=== PATIENT | male | born 1980 | race Caucasian/White ===

== ENCOUNTER → 2016-08-14 | Outpatient (CLI) | payer OTHER ==
[~2016-08-14] MED LIST: AMIT50TA3 PO; NXM/40 PO; OMEP40CA41 PO; OXYC1TAB3 PO; PENI-82 PO; RANI300T2 PO
== END | disposition home or self-care (01) ==
LOC: C.LAB 13:03
DX: R53.83 Other fatigue (principal)

== ENCOUNTER 2017-02-02 00:44 | Emergency (ER) | payer OTHER ==
[~2017-02-02] VITALS: Ht 180.3 cm; Wt 96.1 kg
[~2017-02-02 00:44] MED LIST changes: -OMEP40CA41 PO; -PENI-82 PO
[2017-02-02 00:49] VITALS: TEMP 36.3; Ht 180.3 cm; Wt 96.1 kg
[2017-02-02] MEDS ORDERED: OMEP40CA41 PO (01:10)
[2017-02-02 01:14] VITALS: BP 122/77; PULSE 74; O2SAT 96
[2017-02-02] MEDS ORDERED: PENI-82 PO (01:14)
[2017-02-02] MEDS ORDERED: OXYCODONE IR HOME PACK PO ONE (01:15)
[2017-02-02] MEDS ORDERED: PENICILLIN HOME PACK 500MG (4 DOSES)BTL PO ONE (01:15)
--- NOTE | 2017-02-02 04:00 | EMERGENCY ROOM VISIT NOTE ---
ED Visit Note First contact with patient: 00:51 CHIEF COMPLAINT: Toothache HISTORY OF PRESENT ILLNESS: This 36-year-old male patient presented to the emergency department with a progressive toothache for past several hours. The patient states that he has been having difficulty with right upper molar for the past few months. He had an episode today of worsening pain, and then noticed a piece of the tooth had broken off into his mouth. He does not have trauma to the area, but his pain is now rated a 10/10. He has been using Orajel without relief of symptoms. This just occurred today, and he has not had a chance to contact a dentist. He has not had fever or chills. No facial swelling REVIEW OF SYSTEMS: A 6 system review of systems was completed with positives and pertinent negatives listed in the HPI. ALLERGIES: Tylenol, NSAIDs MEDICATIONS: See EMR PMH: Chronic back pain SOCIAL HISTORY: Lives locally PHYSICAL EXAM: Vitals are noted on the nurse's note and reviewed by myself. Vital signs stable. GENERAL: White male, in no acute distress, nondiaphoretic, well-developed well- nourished. Mouth: The right upper first molar #1 tooth is fractured along the posterior lateral quarter. The gumline is without erythema or edema. No discharge or signs of an abscess. The remainder of the pharynx and tonsils are without erythema, edema, or exudate. The airway is patent. There is no facial swelling , cervical or submandibular lymphadenopathy. The patient appears uncomfortable and in pain. The patient has overall good dental hygiene. EARS: External auditory canals clear, tympanic membranes pearly kumar without erythema or effusion bilaterally. HEART: Regular rate and rhythm without murmur gallop or rub LUNG: Clear to auscultation bilateral ED COURSE: Physical exam and history were performed. Nursing notes and EMR were reviewed. The patient appears to broken a tooth spontaneously today. It is a Friday night and he is not able to contact a dentist because of the weekend. The patient has not regularly been seen here for dental pain. He will be given a course of Pen-Vee K at home pack of OxyIR. The patient is to contact a dentist as soon as possible for definitive care. He was otherwise invited back to the ER with any new, worsening, or concerning symptoms. 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 Current/Historical Medications Scheduled Omeprazole (Prilosec), 40 MG PO DAILY Penicillin V Potassium (Veetids), 500 MG PO QID Allergies Coded Allergies: Acetaminophen (Verified Adverse Reaction, Mild, upset stomach, 10/20/15) NSAIDs (Verified Adverse Reaction, Mild, upset stomach, 10/20/15) Vital Signs Date Time Temp Pulse Resp B/P (MAP) Pulse Ox O2 Delivery O2 Flow Rate FiO2 02/02/17 01:14 74 16 122/77 96 Room Air 02/02/17 00:49 36.3 79 18 128/82 97 Room Air Medications Administered Medications (Trade) Dose Ordered Sig/Marianne Route Start Time Stop Time Status Last Admin Dose Admin Penicillin V Potassium (Pen-Vk 500MG Home Pack) 1 homepack UD ONCE PO 02/02/17 01:15 02/02/17 01:16 DC 02/02/17 01:12 1 HOMEPACK Oxycodone HCl (Roxicodone Immediate Rel 5MG Home Pack) 1 homepack UD ONCE PO 02/02/17 01:15 02/02/17 01:16 DC 02/02/17 01:12 1 HOMEPACK Departure Information Impression Primary Impression: Fracture of tooth Dispostion Home / Self-Care Condition GOOD Prescriptions Penicillin V Potassium (Veetids) 500 Mg Tab 500 MG PO QID for 10 Days, #40 TAB Prov: Remy Silva PA-C 02/02/17 Forms HOME CARE DOCUMENTATION FORM, IMPORTANT VISIT INFORMATION Patient Instructions My [facility] Additional Instructions You were seen and evaluated today on an emergency basis only. This is not a substitute for, or an effort to provide, complete comprehensive medical care. It is not possible to recognize and treat all injuries or illnesses in a single emergency department visit. For this reason it is recommended that you followup with a dentist as soon as possible for definitive care. Oxycodone (OxyIR) 5mg (homepack) and oriented: Take ONE pill every SIX hours for breakthrough pain. Avoid alcohol, operating machinery or dangerous equipment, working on ladders or roofs, DRIVING, or situations where being under the influence may be dangerous. It is recommended to use an over-the- counter stool softener such as Colace, 100mg twice daily while taking this medication to avoid constipation. Take Pen-Vee K 500 mg 4 times daily for the next 10 days. You are welcome to return to the emergency department anytime with new, worsening, or concerning symptoms.
== END 2017-02-02 01:22 | disposition home or self-care (01) ==
LOC: C.EDB 00:44 → C.EDC 01:22
DX: S02.5XXA Fracture of tooth (traumatic), initial encounter for closed fracture (principal); X58.XXXA Exposure to other specified factors, initial encounter; M54.9 Dorsalgia, unspecified; G89.29 Other chronic pain; Z90.89 Acquired absence of other organs